=== PATIENT | male | born 1985 | race Caucasian/White ===

== ENCOUNTER 2018-07-05 05:17 | Emergency (ER) | payer OTHER ==
[2018-07-05 05:34] VITALS: BP 133/93; PULSE 98; TEMP 99.1; BMI 25.8
[2018-07-05] MEDS ORDERED: IBUPROFEN 600 MG TABLET (FP) PO ONE ×2 (05:40→05:44)
--- NOTE | 2018-07-05 05:54 | PDOC ---
History of Present Illness - General Chief Complaint: Pain Stated Complaint: INJURY-[employer] Time Seen by Provider: 07/05/18 05:39 History Source: Patient Exam Limitations: No Limitations - History of Present Illness Initial Comments: 07/05/18 05:42 Mr Bailey is a 32 yo M who presents to the ER with a complaint of left knee pain He was in the process of placing someone in to the group home, person was resisting this He and his partner were trying to remove his shoes and they all fell to the ground The person being arrested fell onto his left knee He is ambulatory but states that his knee feels "tingly" He denies swelling He denies pain in any other location He denies head trauma, LOC, amnesia PMH: denies PSH: pilonydal cyst Meds: Terbinafine ALL: NKDA Social: denies alcohol, drug, cigarette use ROS: GENERAL/CONSTITUTIONAL: No: weakness HEAD, EYES, EARS, NOSE AND THROAT: No: change in vision CARDIOVASCULAR: No: chest pain, lightheadedness RESPIRATORY: No: cough, shortness of breath GASTROINTESTINAL: No: nausea, vomiting, diarrhea, abdominal pain MUSCULOSKELETAL: Yes: left knee pain No: back pain, neck pain SKIN: No: lesions, pallor, rash or easy bruising. NEUROLOGIC: No: headache, vertigo, paresthesias, weakness PE: Pt is awake and alert He answers questions appropriately Card: Regular rate and rhythm, no murmur Lungs: CTA b/l Abd: non tender to palpation Ext: left knee no swelling, no bruising, no abrasion No tenderness noted overlying the patella No point tenderness overlying the proximal tibia No fluid palpable in the joint Stable to anterior and posterior drawer No pain with axial loading Stable to varus and valgus stress Past History - Past Medical History Allergies/Adverse Reactions: Allergies Allergy/AdvReac Type Severity Reaction Status Date / Time No Known Allergies Allergy Verified 07/05/18 05:31 Home Medications: Ambulatory Orders NK [No Known Home Medication] 07/05/18 COPD: No Other medical history: Pt denies - Immunization History Immunization Up to Date: Yes - Suicide/Smoking/Psychosocial Hx Smoking History: Never smoked Have you smoked in the past 12 months: No Information on smoking cessation initiated: No Hx Alcohol Use: No Drug/Substance Use Hx: No *Physical Exam - Vital Signs Last Vital Signs Temp Pulse Resp BP Pulse Ox 99.1 F 98 H 18 133/93 100 07/05/18 05:32 07/05/18 05:32 07/05/18 05:32 07/05/18 05:32 07/05/18 05:32 Moderate Sedation - Procedure Monitoring Vital Signs: Procedure Monitoring Vital Signs Temperature 99.1 F 07/05/18 05:32 Pulse Rate 98 H 07/05/18 05:32 Respiratory Rate 18 07/05/18 05:32 Blood Pressure 133/93 07/05/18 05:32 O2 Sat by Pulse Oximetry (%) 100 07/05/18 05:32 Medical Decision Making - Medical Decision Making 07/05/18 05:54 Pt presents after traumatic injury to the left knee No evidence of fracture or joint instability Will do Xray knee Leo wrap f/u ortho Xray demonstrates no fracture or dislocation Will discharge to home Follow up with ortho *DC/Admit/Observation/Transfer Diagnosis at time of Disposition: Knee injury Qualifiers: Encounter type: initial encounter Laterality: left Qualified Code(s): S89.92XA - Unspecified injury of left lower leg, initial encounter - Discharge Dispostion Disposition: HOME Condition at time of disposition: Stable Decision to Admit order: No - Referrals Referrals: Moshe Castro DO [Staff Physician] - - Patient Instructions Printed Discharge Instructions: DI for Knee Pain Additional Instructions: Mr Bailey Thank you for coming in to the ER today Please be sure to follow up with the [facility] specialist for further evaluation of your knee within 2 - 3 business days You should also follow up with Occupational health next week Your xray does not appear to show any broken bones This does not mean that you don't have other injuries (for example, injuries of the ligaments and other tissues) Take motrin for pain Return to the ER for any other concerns or complaints - Post Discharge Activity Forms/Work/School Notes: Back to Work
== END 2018-07-05 06:15 | disposition home or self-care (01) ==
LOC: JER 05:17
DX: S89.92XA Unspecified injury of left lower leg, initial encounter (principal); X58.XXXA Exposure to other specified factors, initial encounter; Y93.89 Activity, other specified; Y92.89 Other specified places as the place of occurrence of the external cause; Y99.0 Civilian activity done for income or pay; Y35.891A Legal intervention involving other specified means, law enforcement official injured, initial encounter
CPT/HCPCS: 73562-TC-LT-FY; 99282-25

== ENCOUNTER 2018-10-23 03:09 | Emergency (ER) | payer OTHER | END 2018-10-23 04:58 | disposition home or self-care (01) | LOC: JER 03:09 ==